=== PATIENT | female | born 1970 | race Caucasian/White ===

== ENCOUNTER 2017-02-13 18:48 | Emergency (ER) | payer BC ==
[~2017-02-13] VITALS: Ht 162.6 cm; Wt 83.1 kg
[~2017-02-13 18:48] MED LIST: GABA1CAP PO; GLC500 PO; HYDR-5688 PO; LEVO88TA3 PO; VENL75CA PO
[2017-02-13 19:33] VITALS: TEMP 36.8; Ht 162.6 cm; Wt 83.1 kg
[2017-02-13] MEDS ORDERED: ONDANSETRON INJ 2 MG/ML 2 ML VIAL IV STA (21:40)
[2017-02-13] MEDS ORDERED: SODIUM CHLORIDE 0.9% 1000ML 1,000 ML IV ONE (21:45)
[2017-02-13] MEDS ORDERED: ONDA4TAB46 PO (21:55)
[2017-02-13 22:07] LABS: URINE APPEARANCE TURBID (CLEAR); URINE BILIRUBIN NEG (NEG); URINE COLOR YELLOW; URINE EPITHELIAL CELL AUTO 0-5 /lpf (0-5); URINE NITRITE POS (NEG); URINE SPECIFIC GRAVITY 1.015 (1.000-1.030); UROBILINOGEN NEG (NEG); ZZUR CULT IF INDIC CLEAN CATCH YES
[2017-02-13 22:09] LABS: MANUAL MICROSCOPIC REQUIRED? NO; REVIEW REQ? NO
[2017-02-13 22:19] LABS: BASO % 0.2 %; BASO ABS # 0.01 K/uL (0-0.2); COMPLETE YES; HEMATOCRIT 39.7 % (37-47); LYMPH % 32.8 %; LYMPH ABS # 2.15 K/uL (1.2-3.4); MEAN CELL VOLUME 81.9 fL (80-100); MEAN CORPUSCULAR HEMOGLOBIN 26.6 pg (25-34); MEAN CORPUSCULAR HGB CONC 32.5 g/dl (32-36); MEAN PLATELET VOLUME 10.6 fL (7.4-10.4); MONO % 8.2 %; NEUT % 58.8 %; PLATELET COUNT 200 K/uL (130-400); RED BLOOD COUNT 4.85 M/uL (4.2-5.4); WHITE BLOOD COUNT 6.55 K/uL (4.8-10.8)
[2017-02-13 22:45] LABS: BUN/CREATININE RATIO 10.6 (10-20); CALCIUM 9.3 mg/dl (8.5-10.1); CREATININE 1.1 mg/dl (0.60-1.20); POTASSIUM 3.9 mmol/L (3.5-5.1)
--- NOTE | 2017-02-13 22:50 | DIAGNOSTIC IMAGING REPORT ---
PA CHEST RADIOGRAPH AND UPRIGHT AND SUPINE AP RADIOGRAPHS OF THE ABDOMEN CLINICAL HISTORY: Epigastric abdominal pain. COMPARISON STUDY: Chest radiograph August 17, [address] of the abdomen and pelvis November 21, 2011 FINDINGS: Lung volumes are normal. There is no consolidation or evidence of pulmonary edema. No pneumothorax or pleural effusion is present. There is no free air. There are cholecystectomy clips. Bowel gas pattern is normal. Surgical staple lines from gastric bypass are noted. Pelvic calcifications likely reflect phleboliths. IMPRESSION: 1. No free air or evidence of bowel obstruction. 2. No acute cardiopulmonary findings. 3. Moderate amount of stool within the colon and rectum. Electronically signed by: Ran Flores M.D. 02/13/2017 10:48 PM Dictated Date/Time: 02/13/2017 10:47 PM
[2017-02-13] MEDS ORDERED: CEFTRIAXONE SOD INJ 1 GM ADDVIAL IV STA (23:09)
[2017-02-13] MEDS ORDERED: CEFD300C2 PO (23:10)
[2017-02-14 00:17] VITALS: BP 116/67; PULSE 57; O2SAT 95
--- NOTE | 2017-02-14 04:26 | EMERGENCY ROOM VISIT NOTE ---
History First contact with patient: 21:29 Chief Complaint: ABDOMINAL PAIN Stated Complaint: ABDOMINAL PAIN, VOMITING, ELEVATED LABS-REFERRED Nursing Triage Summary: Pt reports she has been having LUQ to upper mid abominal pain after eating and drinking for 2 weeks. Went to PCP and had blood work drawn. elevated lipase. To Walk-in clinic today with nausea and vomiting (3 episodes) today and told to come to ER. History of Present Illness The patient is a 46 year old female who presents to the Emergency Room with complaints of left upper abdominal pain off and on for the past 2 weeks. She has not to her primary care physician during this interval, and had a very slightly elevated lipase. Her other labs were reportedly normal. The patient states that she had some nausea and a few episodes of vomiting today, and she went to the walk-in clinic. The clinic referred the patient to the ER for further management. The patient does not report fever or chills. Her symptoms sometimes worsened with eating and drinking. She has not had right-sided abdominal discomfort. She has had some UTI symptoms, and was recently treated with a course of Bactrim. She rates her overall discomfort 7/10. Review of Systems More than 10 systems were reviewed and otherwise negative with the exception of history of present illness. Past Medical/Surgical History Medical Problems: (1) Breast hypertrophy Social History Smoking Status: Never Smoker Housing Status: lives with family Current/Historical Medications Scheduled Cefdinir (Omnicef), 300 MG PO Q12H Levothyroxine Sodium (Levothyroxine Sodium), 1 TAB PO QAM Metformin Hcl (Glucophage *), 500 MG PO HS Venlafaxine Hcl (Effexor Xr), 1 CAP PO QAM Scheduled PRN Gabapentin (Neurontin), 300 MG PO HS PRN for LEG PAIN Hydrocodone/Acetaminophen 5MG/325MG ([place] 5MG/325MG), 1 TAB PO BID PRN for Pain Ondansetron Hcl (Zofran), 4 MG PO Q8 PRN for Nausea Allergies Coded Allergies: Milk (Verified Allergy, Mild, LACTOSE INTOLERANCE, 02/13/17) Tramadol (Verified Allergy, Mild, CHEST PAIN, 02/13/17) Morphine (Verified Allergy, Unknown, CANT REMEMBER, 02/13/17) Codeine (Verified Adverse Reaction, Mild, N/V, 02/13/17) Amoxicillin (Verified Adverse Reaction, Unknown, C. DIFF INFECTION, 02/13/17 ) Physical Exam Vital Signs Date Time Temp Pulse Resp B/P Pulse Ox O2 Delivery O2 Flow Rate FiO2 02/14/17 00:17 57 16 116/67 95 02/13/17 23:45 57 16 129/80 97 Room Air 02/13/17 21:29 50 02/13/17 21:11 50 14 121/80 95 Room Air 02/13/17 19:33 36.8 61 22 126/88 96 Room Air Pain Rating (0-10): 0 Physical Exam VITALS: Vitals are noted on the nurse's note and reviewed by myself. Vital signs stable. GENERAL: Well-developed, well-nourished, white female, who is in no acute distress and resting comfortably. Patient is cooperative with the examination. HEAD: Normocephalic atraumatic. NECK: Supple without nuchal rigidity. No lymphadenopathy. No thyromegaly. Cervical spine is nontender. HEART: Regular rate and rhythm without murmurs gallops or rubs. LUNGS: Clear to auscultation bilaterally without wheezes, rales or rhonchi. No retractions or accessory muscle use. ABDOMEN: Positive normal bowel sounds x 4. Soft with [id number] tenderness. There is no significant upper abdominal tenderness. MUSCULOSKELETAL: No muscle atrophy, erythema, or edema noted. Full range of motion without joint tenderness in all extremities. Medical Decision & Procedures ER Provider Diagnostic Interpretation: PA CHEST RADIOGRAPH AND UPRIGHT AND SUPINE AP RADIOGRAPHS OF THE ABDOMEN CLINICAL HISTORY: Epigastric abdominal pain. COMPARISON STUDY: Chest radiograph August 17, [address] of the abdomen and pelvis November 21, 2011 FINDINGS: Lung volumes are normal. There is no consolidation or evidence of pulmonary edema. No pneumothorax or pleural effusion is present. There is no free air. There are cholecystectomy clips. Bowel gas pattern is normal. Surgical staple lines from gastric bypass are noted. Pelvic calcifications likely reflect phleboliths. IMPRESSION: 1. No free air or evidence of bowel obstruction. 2. No acute cardiopulmonary findings. 3. Moderate amount of stool within the colon and rectum. Laboratory Results 02/13/17 21:59 Red Blood Count 4.85, Mean Corpuscular Volume 81.9, Mean Corpuscular Hemoglobin 26.6, Mean Corpuscular Hemoglobin Concent 32.5, Mean Platelet Volume 10.6, Neutrophils (%) (Auto) 58.8, Lymphocytes (%) (Auto) 32.8, Monocytes (%) (Auto) 8.2, Eosinophils (%) (Auto) 0.0, Basophils (%) (Auto) 0.2, Neutrophils # (Auto) 3.85, Lymphocytes # (Auto) 2.15, Monocytes # (Auto) 0.54, Eosinophils # (Auto) 0.00, Basophils # (Auto) 0.01 02/13/17 21:59 Test 02/13/17 21:30 02/13/17 21:59 02/13/17 22:05 Urine Color YELLOW Urine Appearance TURBID (CLEAR) Urine pH 6.0 (4.5-7.5) Urine Specific [place] 1.015 (1.000-1.030) Urine Protein NEG (NEG) Urine Glucose (UA) NEG (NEG) Urine Ketones NEG (NEG) Urine Occult Blood 1+ (NEG) Urine Nitrite POS (NEG) Urine Bilirubin NEG (NEG) Urine Urobilinogen NEG (NEG) Urine Leukocyte Esterase LARGE (NEG) Urine WBC (Auto) >30 /hpf (0-5) Urine RBC (Auto) 5-10 /hpf (0-4) Urine Hyaline Casts (Auto) 1-5 /lpf (0-5) Urine Epithelial Cells (Auto) 0-5 /lpf (0-5) Urine Bacteria (Auto) 4+ (NEG) Urine Test NEG (NEG) White Blood Count 6.55 K/uL (4.8-10.8) Red Blood Count 4.85 M/uL (4.2-5.4) Hemoglobin 12.9 g/dL (12.0-16.0) Hematocrit 39.7 % (37-47) Mean Corpuscular Volume 81.9 fL (80-100) Mean Corpuscular Hemoglobin 26.6 pg (25-34) Mean Corpuscular Hemoglobin Concent 32.5 g/dl (32-36) Platelet Count 200 K/uL (130-400) Mean Platelet Volume 10.6 fL (7.4-10.4) Neutrophils (%) (Auto) 58.8 % Lymphocytes (%) (Auto) 32.8 % Monocytes (%) (Auto) 8.2 % Eosinophils (%) (Auto) 0.0 % Basophils (%) (Auto) 0.2 % Neutrophils # (Auto) 3.85 K/uL (1.4-6.5) Lymphocytes # (Auto) 2.15 K/uL (1.2-3.4) Monocytes # (Auto) 0.54 K/uL (0.11-0.59) Eosinophils # (Auto) 0.00 K/uL (0-0.5) Basophils # (Auto) 0.01 K/uL (0-0.2) RDW Standard Deviation 40.8 fL (36.4-46.3) RDW Coefficient of Variation 13.7 % (11.5-14.5) Immature Granulocyte % (Auto) 0.0 % Immature Granulocyte # (Auto) 0.00 K/uL (0.00-0.02) Anion Gap 9.0 mmol/L (3-11) Est Creatinine Clear Calc Drug Dose 66.0 ml/min Estimated GFR () 69.2 Estimated GFR (Non- 59.7 BUN/Creatinine Ratio 10.6 (10-20) Calcium Level 9.3 mg/dl (8.5-10.1) Total Bilirubin 0.4 mg/dl (0.2-1) Aspartate Amino Transf (AST/SGOT) 18 U/L (15-37) Alanine Aminotransferase (ALT/SGPT) 17 U/L (12-78) Alkaline Phosphatase 133 U/L (45-117) Total Protein 8.0 gm/dl (6.4-8.2) Albumin 3.9 gm/dl (3.4-5.0) Globulin 4.1 gm/dl (2.5-4.0) Albumin/Globulin Ratio 1.0 (0.9-2) Amylase Level 43 U/L (25-115) Lipase 268 U/L (73-393) Bedside Troponin I 0.000 ng/ml (0-0.045) Medications Administered Medications (Trade) Dose Ordered Sig/Betsy Route Start Time Stop Time Status Last Admin Dose Admin Sodium Chloride (Nss 1000ml) 1,000 ml @ 999 mls/hr Q1H1M ONCE IV 02/13/17 21:45 02/13/17 22:45 DC 02/13/17 22:00 999 MLS/HR Ondansetron HCl (Zofran Inj) 4 mg NOW STAT IV 02/13/17 21:40 02/13/17 21:43 DC 02/13/17 21:59 4 MG Ceftriaxone Sodium (Rocephin Inj) 1 gm NOW STAT IV 02/13/17 23:09 02/13/17 23:10 DC 02/13/17 23:43 1 GM ED Course Physical exam and history were performed. Nursing notes and EMR were reviewed. Patient appears to have reports of left-sided abdominal pain with nausea and vomiting off and on for the past few weeks. On examination the patient does not appear toxic. IV access was established and labs were obtained. X-rays were performed. The patient was hydrated and medicated as above. EKG was normal sinus rhythm without acute ST elevation. She was placed on a cardiac surgeon. The patient's blood work is as above and was reviewed. She does not have a significantly elevated white blood cell count, gross anemia, bandemia, or significant electrolyte imbalance. Her amylase and lipase did not show evidence of pancreatitis. LFTs are nondiagnostic. Troponin 1 is negative. X- ray does not show acute cardiopulmonary findings, but she does have some increased stool in her colon and rectum. The patient's urine is consistent with infection and she was given IV Rocephin here in the department. Repeat abdominal examination does not show significant upper abdominal tenderness. I discussed the patient's diagnostic findings with her at length. She at a minimum has a UTI and constipation. This may be contributing to some of her symptoms. The patient could also have foodborne illness or viral process causing some of her symptoms. She has Zofran at home, was asked to continue this medication. She was recently on Bactrim for her UTI will trial Omnicef pending urine culture. I did recommend the patient follow up with her PCP this week for further care and management. If her symptoms evolve or worsen she was certainly invited back to the ER anytime. The chart was completed utilizing app2you Speech Voice Recognition Software. Grammatical errors, random word insertions, pronoun errors, and incomplete sentences are an occasional consequence of this system due to software limitations, ambient noise, and hardware issues. Any formal questions or concerns about the content, text, or information contained within the body of this dictation should be directly addressed to the provider for clarification. . Medical Decision Differential diagnosis: Etiologies such as appendicitis, diverticulitis, PUD, biliary pathology, UTI, pancreatitis, obstruction, mesenteric ischemia, aortic pathology, infections, inflammatory bowel disease, renal colic, as well as others were entertained. Impression Primary Impression: Urinary tract infection Additional Impression: Constipation Departure Information Dispostion Home / Self-Care Condition GOOD Prescriptions Cefdinir (OMNICEF) 300 Mg Cap 300 MG PO Q12H for 7 Days, #14 CAP Prov: Steven Boyd PA-C 02/13/17 Forms Call Back Authorization, HOME CARE DOCUMENTATION FORM, IMPORTANT VISIT INFORMATION Patient Instructions My [facility] Additional Instructions You were seen and evaluated today on an emergency basis only. This is not a substitute for, or an effort to provide, complete comprehensive medical care. It is not possible to recognize and treat all injuries or illnesses in a single emergency department visit. For this reason it is recommended that you followup with your primary care physician this week for ongoing care and evaluation. Take Omnicef 300 mg twice daily for the next 7 days Consider using OTC MiraLAX at home for the next few days to help produce a bowel movement You are welcome to return to the emergency department anytime with new, worsening, or concerning symptoms. Problem Qualifiers
--- NOTE | 2017-02-15 14:46 | Pharmacy Progress Note ---
ED Pharmacist Culture FollowUp Date of Service: Feb 15, 2017. Patient was sent home with a prescription for cefdinir, which should cover the E. coli growing from the patient's urine culture, (based on susceptibility to ceftriaxone)
== END 2017-02-14 00:15 | disposition home or self-care (01) ==
LOC: C.EDB 18:50
DX: N39.0 Urinary tract infection, site not specified (principal); K59.00 Constipation, unspecified; Z79.899 Other long term (current) drug therapy

== ENCOUNTER → 2017-03-16 | Outpatient (CLI) | payer BC ==
[~2017-03-16] MED LIST changes: +ONDA4TAB46 PO
--- NOTE | 2017-03-16 11:39 | DIAGNOSTIC IMAGING REPORT ---
ULTRASOUND ABDOMEN COMPLETE CLINICAL HISTORY: Pancreatitis. COMPARISON STUDY: Abdominal CT dated 11/21/2011. TECHNIQUE: Real-time, grayscale, and color flow sonography of the abdomen was performed. Images are reviewed in the transverse and longitudinal planes. FINDINGS: Liver: The liver is normal in size and demonstrates heterogeneously increased echotexture suggesting hepatic steatosis. There is no intrahepatic biliary ductal dilatation. The main portal vein is patent. Gallbladder: The gallbladder is surgically absent. The common bile duct measures up to 0.4 cm in diameter. Pancreas: Not well visualized due to overlying bowel gas. Spleen: The spleen is top normal in size and homogeneous in echotexture, measuring 13.4 cm in length. Kidneys: The kidneys are normal in size and echotexture. There is no hydronephrosis. The right kidney measures 10.8 cm in length and the left kidney measures 10.3 cm in length. No shadowing calculi are identified. Abdominal vasculature: Visualized portions of the abdominal aorta and IVC are normal as visualized. Ascites: None. IMPRESSION: 1. No acute sonographic abnormality is identified noting status post cholecystectomy. 2. Findings suggest mild hepatic steatosis. 3. The pancreas was not well visualized due to overlying bowel gas. Electronically signed by: Alphonso Jeffries M.D. 03/16/2017 11:37 AM Dictated Date/Time: 03/16/2017 11:35 AM
== END | disposition home or self-care (01) ==
LOC: C.ULTRBC 10:06
PROVIDERS: ATTEND Family Medicine
DX: K85.90 Acute pancreatitis without necrosis or infection, unspecified (principal)

== ENCOUNTER → 2018-01-05 | Outpatient (CLI) | payer OTHER ==
[~2018-01-05] MED LIST changes: +GABA100C13 PO; -GABA1CAP PO
--- NOTE | 2018-01-05 12:09 | DIAGNOSTIC IMAGING REPORT ---
Brain MRI WITHOUT CONTRAST HISTORY: DEMYELINATING DISEASE OF CENTRAL NERVOUS SYSTEM TECHNIQUE: Multiplanar multisequence MRI of the brain was performed without the use of contrast. COMPARISON STUDY: Brain MRI 03/16/2012. FINDINGS: There are no areas of restricted diffusion to suggest acute infarction. The midline structures are intact. The paranasal sinuses are clear. The mastoid air cells are clear. The ventricles and sulci are within normal limits for age. There is no mass, hematoma, midline shift. The major vascular flow-voids at the skull base are well maintained. The orbits are unremarkable. The optic nerves are symmetric and demonstrate a normal signal intensity. There few punctate foci of T2 hyperintensity seen within the periventricular and subcortical white matter of the frontal lobes. These are not significantly changed. No abnormal white matter foci within the posterior fossa. IMPRESSION: No acute intracranial abnormality. No change in the few scattered punctate foci of T2 hyperintensity within the white matter of the frontal lobes. This is nonspecific and can be seen the setting of migraines, microvascular ischemic change, or less likely a demyelinating process. Electronically signed by: Markell Harris M.D. 01/05/2018 12:08 PM Dictated Date/Time: 01/05/2018 11:24 AM
== END | disposition home or self-care (01) ==
LOC: C.MRI 10:47
PROVIDERS: ATTEND Family Medicine
DX: G37.9 Demyelinating disease of central nervous system, unspecified (principal)

== ENCOUNTER → 2018-03-01 | Outpatient (CLI) | payer OTHER ==
[2018-03-01 10:06] LABS: HEMOGLOBIN A1C 5.8 % (4.5-5.6)
== END | disposition home or self-care (01) ==
LOC: C.LAB1850 08:48
PROVIDERS: ATTEND Physician Assistant
DX: E11.9 Type 2 diabetes mellitus without complications (principal)

== ENCOUNTER 2019-07-27 14:07 | Inpatient (IN) ==
--- OUTSIDE RECORDS SUMMARY | 2019-07-27 14:10 | External Medical Summary | Continuity of Care Document ---
:1970 Author Name Alec Luo, Provider Address Unavailable Unavailable , Care Team Providers Name Role Phone Unavailable Unavailable Unavailable Joycelyn Cueva PA-C Unavailable [email or web address] RENEE DE LEÓN Unavailable Unavailable Unavailable Unavailable Unavailable Problems Benign Headache Syndromes (784.0) Demyelinating disorder (341.9) (G37.9) Optic neuritis (377.30) (H46.9) Hypothyroidism (244.9) (E03.9) Depression with anxiety (300.4) (F41.8) Status post gastric bypass for obesity (V45.86) (Z98.84) Diabetes mellitus (250.00) (E11.9) Abdominal pannus (278.1) (E65) Allergies and Adverse Reactions Amoxicillin TABS (Allergy) Codeine Derivatives (Allergy) Reaction: Nausea, Vomiting Morphine Derivatives (Allergy) Reaction: Rash Tramadol (Allergy) Reaction: Chest pain Medications Synthroid 88 MCG Oral Tablet; TAKE 1 TABLET DAILY DIRECTE D. , M.D. Refills: 0 Effexor 75 MG TABS; TAKE 1 TABLET DAILY. , M.D. Refills: 0 Thrive For Life Womens TABS , M.D. Refills: 0 Endocet 5-325 MG Oral Tablet; TAKE 1 TAB LET EVERY 4 TO 6 HOURS NEEDED FOR PAIN. HUANG Cueva Start: 22-Mar-2018 Quantity: 18 Refills: 0 Procedures History of Gastric Surgery For Morbid Obesity Gastric Bypass Status: Completed History of Cholecystectomy Laparoscopic Status: Completed History of Hysterectomy Status: Complete d History of Neuroplasty Decompression Median Nerve At Carpal Status: Completed Tunnel Immunizations Influenza Comments:Approx Jul 2012 Fluzone Quadrivalent 0.5 ML Intramuscular Suspension On: Aug-2018 Lot #: [id number], [employer] Family History Mother Family history of Cancer Status: Active Family history of Reported Family History Of Heart Disease S tatus: Active Father Family history of Diabetes Mellitus (V18.0) Status: Active Family history of Hypertension (V17.49) Status: Active Family history of Hyperlipidemia Status: Active Social History - Smoking Status Never smoker Plan of Treatment Planned Observations Planned Goals not documented Results No Known Results Results not documented Encounters Appointment; Joycelyn Cueva PA-C 17-May-2018 16:00 Encounter Diagnosis: Problem not documented Appointment; Joycelyn Cueva PA-C 18-Apr-2018 16:00 Encounter Diagnosis: Problem not documented Appointment; Joycelyn Cueva PA-C 10-Apr-2018 13:00 Encounter Diagnosis: Problem not documented Appointment; Joycelyn Cueva PA-C 05-Apr-2018 14:00 Encounter Diagnosis: Problem not documented Appointment; Berta Flores M.D. 02-Apr-2018 7:00 Encounter Diagnosis: Problem not documented Appointment; Joycelyn Cueva PA-C 22-Mar-2018 11:00 Encounter Diagnosis: Problem not documented Appointment; Berta Flores M.D. 20-Feb-2018 15:30 Encounter Diagnosis: Problem not documented
[2019-07-27] MEDS ORDERED: SODIUM CHLORIDE 0.9% 1000ML 1,000 ML IV ONE (14:24)
[2019-07-27] MEDS ORDERED: ERTAPENEM SODIUM 10 ML IV STA (14:34)
[2019-07-27 14:52] LABS: Hematocrit (blood only) 41.9 % (37-47); Hemoglobin 13.7 g/dL (12.0-16.0); Mean Corpuscular Hgb Conc 32.7 g/dL (32-36); Mean Corpuscular Volume 91.5 fL (80-100); Mean Platelet Volume 10.4 fL (7.4-10.4); Platelet Count 164 K/uL (130-400); RDW Standard Deviation 43.3 fL (36.4-46.3); Red Blood Count 4.58 M/uL (4.2-5.4); White Blood Count 6.23 K/uL (4.8-10.8)
[2019-07-27 14:59] LABS: Appearance Urine Cloudy (Clear); Bacteria Urine Automated 4+ (Negative); Bilirubin Urine Negative (Negative); Blood Urine Trace (Negative); Color Urine Yellow; Epithelial Cell Urine Auto 0-5 /lpf (0-5); Glucose Urine UA Negative (Negative); Ketones Urine Negative (Negative); Leukocyte Esterase Urine 3+ (Negative); Nitrite Urine Positive (Negative); Protein Urine Negative (Negative); RBC Urine Automated 0-4 /hpf (0-4); Specific Gravity Urine 1.017 (1.000-1.030); Urobilinogen Urine Negative (Negative); WBC Urine Automated >30 /hpf (0-5); pH Urine 5.5 (4.5-7.5)
[2019-07-27 15:08] LABS: Calcium 8.9 mg/dl (8.5-10.1); Creatinine Clr Calc Pharmacy 61.2 ml/min; Est GFR (African American) 64.2; Est GFR (Non-African American) 55.4; Potassium 3.9 mmol/L (3.5-5.1)
--- NOTE | 2019-07-27 15:38 | History & Physical Report ---
Date of Service July 27, 2019 Assessment & Plan (1) Urinary tract infection: Recurrent and resistant Has been working with [facility] specialist for this issue UA + in the ED, cx pending Recent cx noted for ESBL Klebsiella Started on invanz in the ED, will continue WBC WNL, afebrile Probiotics IVF Renal US pending, possible early pyelo (2) Hypothyroid: continue home meds (3) Clostridium difficile infection: Hx of infection with amoxicillin use Advised to continue probiotics during course of abx and for at least a month after (4) Pre-diabetes: Hx of DM that resolved s/p gastric bypass Is supposed to take metformin HS only, but manages with her diet A1c 5.4 last month BS 95 in ED, monitor (5) Depression: continue home meds (6) DVT prophylaxis: SCDs, ambulation History of Present Illness Primary Care Provider: Amanda Franco, DO 49 y/o F who was sent here for abn UA + cx. Pt has been having issues with recurrent UTI since March. She has had 6-7 episodes. She will finish a course of abx and feel improved, but then a week later her sx will return. Pt states she never has any urinary pain or frequency. She initially notes cloudy urine that is malodorous. She will then develop flank pain, generally on the R. Given the repeat episodes, pt was recently referred to uro-gyne at [facility]. She has met with them once and was put on prophylactic macrobid, which she started 07/19. A few days later she noted cloudy urine. She was seen by her PCP on Monday and a UA was collected via [facility]. She was called today to come to the ED for ESBL UTI with klebsiella. She does note mild R sided back pain today and possibly a fever. Pt denies SOB, chest pain, abd pain, n/v/c/d, LE pain or swelling. Allergies Allergy/AdvReac Type Severity Reaction Status Date / Time milk Allergy Mild LACTOSE Verified 07/27/19 14:46 INTOLERANCE tramadol Allergy Mild CHEST PAIN Verified 07/27/19 14:46 morphine Allergy Unknown N/V; GI Verified 07/27/19 14:46 Upset codeine AdvReac Mild N/V Verified 07/27/19 14:46 amoxicillin AdvReac Unknown C. DIFF Verified 07/27/19 14:46 INFECTION Home Medications Home Medications Medication Instructions Recorded Confirmed Type levothyroxine 88 mcg PO DAILY #0 tab 08/31/16 07/27/19 History ondansetron HCl 4 mg PO DAILY PRN #0 tab 02/13/17 07/27/19 History hydroxyzine pamoate [Vistaril] 25 mg PO HS PRN 07/27/19 07/27/19 History nitrofurantoin macrocrystal 100 mg PO HS 07/27/19 07/27/19 History venlafaxine 75 mg PO QAM 07/27/19 07/27/19 History Past Med/Surg History Medical History Kidney infection UTI (urinary tract infection) Family History Mother Myocardial infarction Bladder cancer Father Stroke Other No significant family history Social History Current Living Situation: Family Feels Safe at Home: Yes Smoking Status: Never smoker Hx Alcohol Use: No Hx Substance Use: No Review of Systems Review of Systems: Pertinent positives and negatives reviewed in HPI--all others negative Physical Exam Constitutional: WD/WN, vitals as above Eyes: normal visual panchal by confrontation and + anicteric sclerae Neck: normal visual inspection and trachea midline Respiratory: normal respiratory effort, lungs clear to auscultation Cardiovascular: Rate/Rhythm: regular rate and regular rhythm Gastrointestinal (Abdomen): Inspection/Auscultation: abdomen not distended Percussion/Palpation: abdomen soft; abdomen nontender Musculoskeletal: Head/Neck/Chest: normocephalic and head atraumatic negative for edema, peripheral pulses intact Mild R sided CVA TTP Skin: no rashes, warm and dry Neurologic: awake; not confused Speech / Cognition: normal speech Psychiatric: A+Ox3, euthymic affect Results & Data Vital Signs (Past 12 Hours) Vital Signs Temp Pulse Pulse Resp BP BP Pulse Ox 07/27/19 15:03 50 L 20 119/84 96 07/27/19 14:10 36.7 C 57 L 20 121/81 97 Diagnostic Findings Renal US: neg for acute Code Status & VTE Plan Code Status Full code PG Care Time/CCT Total # of Minutes Spent Total Time Spent with Patient: Total time spent is greater than 50% in coordination of care (as documented) at patient's floor/unit and/or counseling patient:
[2019-07-27] MEDS ORDERED: ERTAPENEM SODIUM 1,000 MG in SODIUM CHLORIDE 0.9% 50 ML IV ONE (16:00)
--- NOTE | 2019-07-27 16:02 | Ultrasound Report ---
US renal/blad retro comp CLINICAL HISTORY: 49 years-old Female presenting with flank pain, poss pyelo or hydroneph. TECHNIQUE: Real-time grayscale and limited color Doppler ultrasound imaging of the kidneys and bladde r was performed. COMPARISON: 03/16/2017. FINDINGS: Right kidney: Normal echogenicity with preserved corticomedullary differentiation. Normal cortical th ickness. Right kidney measures 10.4 cm. No hydronephrosis. No convincing evidence of calculus or mass . Left kidney: Normal echogenicity with preserved corticomedullary differentiation. Normal cortical thi ckness. Left kidney measures 10.6 cm. No hydronephrosis. No convincing evidence of calculus or mass. Bladder: Underdistended limiting evaluation but grossly normal. Bilateral ureteral jets not visualize d. Other: None. IMPRESSION: 1. Essentially normal renal ultrasound. No obstruction. Electronically signed by: Jefferson Luis M.D. 07/27/2019 4:01 PM
--- NOTE | 2019-07-27 16:04 | Emergency Department Note ---
Entered by Jennifer Corrales acting as a scribe for Alphonso Dacosta MD History of Present Illness General Chief complaint: Abnormal Labs/Diagnostic Testing Stated complaint: IV ANTIBIOTICS REFERRED Time Seen by Provider: 07/27/19 14:20 Source: patient Mode of arrival: ambulatory History of Present Illness Provider complaint: abnormal lab results Onset (ago): day(s) 3 Location: pelvis Pain Consistency: + other (episode ) Maximum Pain Intensity: 2 Relieved By: not by medication (antibiotics ) Associated symptoms: + other (slight back pain ) The patient is a 49 year old female with a PMHX of UTI's and kidney infections, who presents to the ED with complaints of an episode of abnormal urinary lab results from a sample given 3 days ago. She states that she was prompted by her PCP at [facility] to come to the ED today for IV antibiotics. The patient states that she has slight back pain. The patient states that she has had recurrent UTIs and kidney infections for the past couple months and was placed on antibiotics several times. She states that she was sent to [facility] by her PCP, they placed her on the antibiotic, Macrobid, prophylactically. She states that she started the Macrobid 1 week ago. The patient states that she went to her PCP 3 days ago and gave another urine sample to be tested. She states that her urine was cloudy but it did not have an odor. The patient states that her UTIs are typically associated with kidney pain. The patient states that she received a call from her PCP about her urine sample that revealed the patients infection was resistant to oral antibiotics. She states that the office told her that they talked with Dr. Kuo from infectious disease who advised the patient to come to the ED for IV antibiotics. The patient states that her previous infections showed E.coli and her PCP would normally give her Bactrim to treat the infections. She denies being nauseous. The patient's chart stated that the patient was sent here for an IV antibiotics. The chart states that the patients urine culture from 07/24 grew Klebsiella pneumonia (ESBL). The infection is Macrobid resistant, which she is taking currently. PCP spoke with infectious disease and they referred her to the ED. Home Medications Home Medications Medication Instructions Recorded Confirmed Type levothyroxine 88 mcg PO DAILY #0 tab 08/31/16 07/27/19 History ondansetron HCl 4 mg PO DAILY PRN #0 tab 02/13/17 07/27/19 History hydroxyzine pamoate [Vistaril] 25 mg PO HS PRN 07/27/19 07/27/19 History nitrofurantoin macrocrystal 100 mg PO HS 07/27/19 07/27/19 History venlafaxine 75 mg PO QAM 07/27/19 07/27/19 History Allergies Allergy/AdvReac Type Severity Reaction Status Date / Time milk Allergy Mild LACTOSE Verified 07/27/19 14:46 INTOLERANCE tramadol Allergy Mild CHEST PAIN Verified 07/27/19 14:46 morphine Allergy Unknown N/V; GI Verified 07/27/19 14:46 Upset codeine AdvReac Mild N/V Verified 07/27/19 14:46 amoxicillin AdvReac Unknown C. 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 and A total of 10 systems reviewed and were otherwise negative Physical Exam Vital Signs Vital Signs - 24 hr 07/27/19 14:10 07/27/19 15:03 07/27/19 15:05 Temperature 36.7 C Temperature Source Oral Sepsis Recent Fever Within 48 Hours No Sepsis New/Unexplained Change in Mental Status No Sepsis Action Taken by Nursing No Action Required Pulse Rate 57 L Pulse Rate [Finger] 50 L Pulse Rate from SpO2 Sensor Respiratory Rate 20 20 Blood Pressure 121/81 119/84 Blood Pressure [Left Arm] 119/84 Blood Pressure Mean 94 95 Blood Pressure Mean [Left Arm] 95 Pulse Oximetry 97 96 Oxygen Delivery Method Room Air Room Air Room Air 07/27/19 15:39 07/27/19 15:40 Temperature Temperature Source Sepsis Recent Fever Within 48 Hours Sepsis New/Unexplained Change in Mental Status Sepsis Action Taken by Nursing Pulse Rate Pulse Rate [Finger] Pulse Rate from SpO2 Sensor 56 L 49 L Respiratory Rate Blood Pressure Blood Pressure [Left Arm] Blood Pressure Mean Blood Pressure Mean [Left Arm] Pulse Oximetry 97 97 Oxygen Delivery Method Room Air Room Air GENERAL: Patient is in no acute distress. HEENT: No acute trauma, normocephalic atraumatic, mucous membranes moist, no nasal congestion, no scleral icterus. NECK: No stridor, no adenopathy, no meningismus, trachea is midline. LUNGS: Clear to auscultation bilaterally, no wheeze, no rhonchi, breath sounds equal. HEART: Without murmurs gallops or rubs, regular rate and rhythm. ABDOMEN: Soft, nontender, bowel sounds positive, no hernias, no peritonitis. BACK: No flank discomfort to percussion. EXTREMITIES: No cyanosis or edema, full range of motion of all the joints without pain or difficulty, no signs for acute trauma. NEUROLOGIC: Oriented x 3, no acute motor or sensory deficits, no focal weakness. SKIN: No rash, no jaundice, no diaphoresis. Course 1423: Past medical records reviewed. The patient was evaluated in room A2. A complete history and physical exam was performed. 1448: I reevaluated the patient at this time and she stated that she is resting comfortably. I discussed the test results and treatment plan with the patient. She verbally agreed and understood. 1502: I discussed the patient's case with Draell Shirley. She agreed to evaluate the patient for further management. 1550: I reevaluated the patient at this time. I discussed the treatment plan with the patient. She verbally agreed and understood. Consultations Consultation #1: I discussed the patient's case with Darell Shirley. She agreed to evaluate the patient for further management. Time: 15:02 Administered Medications Potassium Chloride/Sodium Chloride (1/2 Nss + 20meq Kcl 1000ml) 20 meq in 1,000 mls @ 80 mls/hr IV .[id number] CHANDRAKANT Stop: 08/26/19 17:14 Last Admin: 07/27/19 19:43 Dose: 80 mls/hr Documented by: [id number] Lactobacillus Acidophilus (Floranex) 4 tab PO QIDM CHANDRAKANT Stop: 08/26/19 17:07 Last Admin: 07/27/19 21:07 Dose: 4 tab Documented by: [id number] Admin: 07/27/19 19:42 Dose: 4 tab Documented by: [id number] Discontinued Medications Sodium Chloride (Nss 1000ml) 1,000 mls @ 999 mls/hr IV .[id number] ONE Stop: 07/27/19 15:24 Last Infusion: 07/27/19 16:07 Dose: 0 mls/hr Documented by: [id number] Admin: 07/27/19 15:03 Dose: 999 mls/hr Documented by: [id number] Ertapenem 1,000 mg/ Sodium (Chloride) 60 mls @ 100 mls/hr IV NOW ONE Stop: 07/27/19 16:35 Last Infusion: 07/27/19 17:06 Dose: 0 mls/hr Documented by: [id number] Admin: 07/27/19 16:07 Dose: 100 mls/hr Documented by: [id number] Medical Decision Making Differential Diagnosis Differential diagnoses include but are not limited to UTI, pyelonephritis, hydr onephrosis, urinary obstruction, renal failure, failed outpatient management, dehydration. Medical Records Attestation: I reviewed the patient's medical records. Home Medications Current Medication List: was personally reviewed by me Laboratory Data Attestation: I reviewed the patient's lab results. Result diagrams: 07/27/19 14:37 07/27/19 14:37 Lab Results 07/27/19 07/27/19 07/27/19 Range/Units 14:37 14:37 14:45 WBC 6.23 (4.8-10.8) K/uL RBC 4.58 (4.2-5.4) M/uL Hgb 13.7 (12.0-16.0) g/dL Hct 41.9 (37-47) % MCV 91.5 (80-100) fL MCH 29.9 (25-34) pg MCHC 32.7 (32-36) g/dL RDW Std Deviation 43.3 (36.4-46.3) fL RDW Coeff of Serge 13.0 (11.5-14.5) % Plt Count 164 (130-400) K/uL MPV 10.4 (7.4-10.4) fL Sodium 143 (136-145) mmol/L Potassium 3.9 (3.5-5.1) mmol/L Chloride 109 H (98-107) mmol/L Carbon Dioxide 30 (21-32) mmol/L Anion Gap 3.0 (3-11) BUN 13 (7-18) mg/dl Creatinine 1.15 (0.6-1.2) mg/dl Est Cr Clr Drug Dosing 61.2 ml/min Est GFR ( Amer) 64.2 Est GFR (Non-Af Amer) 55.4 BUN/Creatinine Ratio 11.0 (10-20) Glucose 95 (70-99) mg/dl Calcium 8.9 (8.5-10.1) mg/dl Urine Color Yellow Urine Appearance Cloudy A (Clear) Urine pH 5.5 (4.5-7.5) Ur Specific [place] 1.017 (1.000-1.030) Urine Protein Negative (Negative) Urine Glucose (UA) Negative (Negative) Urine Ketones Negative (Negative) Urine Blood Trace H (Negative) Urine Nitrite Positive A (Negative) Urine Bilirubin Negative (Negative) Urine Urobilinogen Negative (Negative) Ur Leukocyte Esterase 3+ H (Negative) Urine WBC (Auto) >30 H (0-5) /hpf Urine RBC (Auto) 0-4 (0-4) /hpf U Hyaline Cast (Auto) 1-5 (0-5) /lpf U Epithel Cells (Auto) 0-5 (0-5) /lpf Urine Bacteria (Auto) 4+ H (Negative) Blood Pressure Blood Pressure Findings: Elevated blood pressure Blood Pressure Disposition: further management by hospitalist MDM Narrative There is no leukocytosis or concerning anemia. No significant electrolyte abnormality or kidney failure. Urinalysis does suggest infection, urine culture is pending. I was able to review the urine culture from a few days ago. This showed a Klebsiella pneumonia that was an ESBL. The organism was quite resis tant, it was resistant to Macrobid. The patient was given a dose of IV ertapenem for which sensitivity was shown. Renal ultrasound did not show hydronephrosis or evidence for urinary obstruction. The patient received IV saline, she was given IV ertapenem. The patient has a resistant urinary infection. She is not toxic in appearance, she is not currently febrile. She does have some mild flank pain though. And she thinks she may have been febrile at home. ID had been contacted by the outpatient provider. ID recommended IV antibiotic's and hospitalization. I spoke to the patient and case management. The on-call hospitalist was consulted. Impression & Plan UTI (urinary tract infection), Flank pain, Failure of outpatient treatment Discharge Plan Visit Data *Final* Discharge Date/Time: 07/27/19 16:27 Chief Complaint: Abnormal Labs/Diagnostic Testing Stated Complaint: IV ANTIBIOTICS REFERRED ED Provider: Alphonso Dacosta Discharge Problem: UTI (urinary tract infection), Flank pain, Failure of outpatient treatment Patient Disposition: Admitted As Inpatient Discharge Instructions Interventions: ED Discharge Assessment Last Done: 07/27/19 16:27 The keyshaibe's documentation has been prepared under my direction and personally reviewed by me in its entirety. I confirm that the note above accurately reflects all work, treatment, procedures, and medical decision making performed by me.
[2019-07-27] MEDS ORDERED: ONDANSETRON INJ 2 MG/ML 2 ML VIAL IV PRN (17:08)
[2019-07-27] MEDS ORDERED: ACETAMINOPHEN 325 MG TAB PO PRN (17:08)
[2019-07-27] MEDS ORDERED: ONDANSETRON 4 MG TAB PO PRN (17:08)
[2019-07-27] MEDS ORDERED: MAGNESIUM HYDROXIDE SUSP 30 ML UDC PO PRN (17:08)
[2019-07-27] MEDS: LACTOBACILLUS ACIDOPHILUS (FLORANEX) TAB PO SCH ×2 (19:42→21:07)
[2019-07-27] MEDS: SODIUM CHLOR 0.45% + 20MEQ KCL 20 MEQ/1,000 ML BAG IV SCH (19:43)
[2019-07-28 05:45] LABS: Basophils # (auto) 0.02 K/uL (0-0.2); Basophils % (auto) 0.3 %; Hematocrit (blood only) 37.4 % (37-47); Hemoglobin 12.5 g/dL (12.0-16.0); Lymphocytes % (auto) 36.2 %; Mean Corpuscular Hgb Conc 33.4 g/dL (32-36); Mean Corpuscular Volume 92.1 fL (80-100); Mean Platelet Volume 10.9 fL (7.4-10.4); Monocytes # (auto) 0.48 K/uL (0.11-0.59); Monocytes % (auto) 7.5 %; Neutrophils # (auto) 3.56 K/uL (1.4-6.5); Platelet Count 145 K/uL (130-400); RDW Coefficient of Variation 12.9 % (11.5-14.5); RDW Standard Deviation 43.5 fL (36.4-46.3); Red Blood Count 4.06 M/uL (4.2-5.4); White Blood Count 6.36 K/uL (4.8-10.8)
[2019-07-28 06:17] LABS: BUN Creatinine Ratio 15.2 (10-20); Calcium 8.3 mg/dl (8.5-10.1); Creatinine Clr Calc Pharmacy 78.6 ml/min; Est GFR (African American) 86.4; Est GFR (Non-African American) 74.6; Potassium 4.2 mmol/L (3.5-5.1)
[2019-07-28] MEDS: LEVOTHYROXINE SODIUM 88 MCG TABLET PO SCH (06:25)
[2019-07-28] MEDS: SODIUM CHLOR 0.45% + 20MEQ KCL 20 MEQ/1,000 ML BAG IV SCH ×2 (06:26→19:46)
[2019-07-28] MEDS: VENLAFAXINE HCL XR 75 MG CAPXR PO SCH (08:32)
[2019-07-28] MEDS: LACTOBACILLUS ACIDOPHILUS (FLORANEX) TAB PO SCH ×4 (08:32→19:47)
[2019-07-28] MEDS ORDERED: ONDANSETRON 4 MG TAB PO PRN (11:35)
--- NOTE | 2019-07-28 11:52 | Hospitalist Progress Note ---
Date of Service July 28, 2019 Assessment & Plan (1) Urinary tract infection: - Patient with six diagnosed UTIs in the past nine months. Treated with various agents- recurrent and resistant to treatment. - Schedule August 16 2019 with [facility] for cystoscopy. - UA+ for blood, nitrate, 3+ leuk esterase, >30 WBCs- culture preliminary results with gram negative bacilli - Culture pending- recent culture noted for ESBL Klebsiella - Invanz initiated in ED- continue- antibiotic selection pending sensitivities - Patient continues to be afebrile, no elevation in WBCs - Renal ultrasound without evidence of obstruction of pyelo. - Continue IVF - Per discussion with Infectious Disease, patient may continue IV abx treatment outpatient if asymptomatic, via [facility], pending insurance authorization (2) Hypothyroid: - Continue home levothyroxine 88mcg - Given fatigue, TSH repeated in AM- 2.52 and WNL (3) Clostridium difficile infection: - Hx of infection following amoxicillin use twenty years ago - Advised to continue probiotics during course of abx and for at least a month after (4) Pre-diabetes: - Hx of DM that resolved s/p gastric bypass - Is supposed to take metformin HS only, but manages with her diet - A1c 5.4 last month - BS 95 in ED - Continue to monitor (5) Depression: - Continue home venlafaxine, hydroxyzine (6) DVT prophylaxis: - SCDs - Ambulation encouraged as tolerated Dispo: patient to discharge home on IV ertapenem- will need insurance aut horization and PICC line prior to discharge Supervising Physician Co-Signing Physician Notes Attending Attestation - Chart reviewed in detail, care plan d/w ARMIDA Lira. I agree w/ the soto components of her documentation. 49yo w/ history of gastric bypass status with recurrent UTIs in the last year. Now with MDR klebsiella on outpatient urine cx from 07/24/19 as obtained from [facility]. Interestingly she is largely asymptomatic from this - cloudy urine only - normal WBC count, eating well, afebrile. Does she need intensive IV abx therapy in light of the above?? (And especially since she seems to be asymptomatic). Defer that final decision to ID. If abx are needed - IV ertapenem x 1 week (pathogen only sensitive to ertapenem, cefepime, gent per sensitivity panel). Urology f/u after d/c (along with [facility]rail [facility]). Meri NERI MD Subjective Patient states she is feeling well overall. She states she was treated with bactrim outpatient for UTI recently, with a prophylactic macrobid initiated until her cystoscopy scheduled with [facility] August 16 to investigate a possible underlying cause for recurrent UTIs. She states this is the sixth UTI in the past nine months which have been treated with various antibiotics. She had been to her PCP on Monday and gave a urine sample and was called yesterday with the results after input from infectious disease Dr. Kuo and was told to come to the hospital for IV antiboitics. The patient states the only sign she is experiencing is that her urine is very cloudy, which has been her initial sign in the past. She does have some back pain, but it is much less severe then in the past when she has had UTIs. She believes she may have the start of a yeast infection due to some increased itchiness, which she frequently gets after antibiotic therapy and has diflucan at home. She does have some nausea and fatigue this morning. She denies any fevers, chills, dysuria, chest pain, shortness of breath, abdominal pain, vomiting, diarrhea. Review of Systems Review of Systems: All systems reviewed & are unremarkable except as noted in HPI & below Physical Exam Constitutional: WD/WN, vitals as above Eyes: PERRL, conjunctivae normal, anicteric sclerae Neck: trachea midline, no thyromegaly Respiratory: normal respiratory effort, lungs clear to auscultation Cardiovascular: Rate/Rhythm: regular rhythm and + bradycardic Heart Sounds: normal S1 and normal S2; no gallop, no murmur and no cardiac rub Gastrointestinal (Abdomen): normal bowel sounds, soft, nontender, no hepatosplenomegaly Musculoskeletal: no cyanosis or clubbing, extremities motor strength 5/5 Skin: no rashes, warm and dry Psychiatric: A+Ox3, euthymic affect Genitourinary: without discharge Results & Data Vital Signs (Past 12 Hours) Vital Signs Temp Pulse Resp BP Pulse Ox 07/28/19 07:20 36.7 C 56 L 17 110/70 97 Laboratory Results 07/28/19 07/28/19 07/27/19 Range/Units 05:16 05:16 17:04 WBC 6.36 (4.8-10.8) K/uL RBC 4.06 L (4.2-5.4) M/uL Hgb 12.5 (12.0-16.0) g/dL Hct 37.4 (37-47) % MCV 92.1 (80-100) fL MCH 30.8 (25-34) pg MCHC 33.4 (32-36) g/dL RDW Std Deviation 43.5 (36.4-46.3) fL RDW Coeff of Serge 12.9 (11.5-14.5) % Plt Count 145 (130-400) K/uL MPV 10.9 H (7.4-10.4) fL Immature Gran % (Auto) 0.0 % Neut % (Auto) 56.0 % Lymph % (Auto) 36.2 % [place] % (Auto) 7.5 % Eos % (Auto) 0.0 % Baso % (Auto) 0.3 % Immature Gran # (Auto) 0.00 (0.00-0.02) K/uL Neut # (Auto) 3.56 (1.4-6.5) K/uL Lymph # (Auto) 2.30 (1.2-3.4) K/uL [place] # (Auto) 0.48 (0.11-0.59) K/uL Eos # (Auto) 0.00 (0-0.5) K/uL Baso # (Auto) 0.02 (0-0.2) K/uL Sodium 143 (136-145) mmol/L Potassium 4.2 (3.5-5.1) mmol/L Chloride 111 H (98-107) mmol/L Carbon Dioxide 28 (21-32) mmol/L Anion Gap 4.0 (3-11) BUN 14 (7-18) mg/dl Creatinine 0.90 (0.6-1.2) mg/dl Est Cr Clr Drug Dosing 78.6 ml/min Est GFR ( Amer) 86.4 Est GFR (Non-Af Amer) 74.6 BUN/Creatinine Ratio 15.2 (10-20) Glucose 87 (70-99) mg/dl POC Glucose 89 (70-99) Calcium 8.3 L (8.5-10.1) mg/dl Urine Color Urine Appearance (Clear) Urine pH (4.5-7.5) Ur Specific [place] (1.000-1.030) Urine Protein (Negative) Urine Glucose (UA) (Negative) Urine Ketones (Negative) Urine Blood (Negative) Urine Nitrite (Negative) Urine Bilirubin (Negative) Urine Urobilinogen (Negative) Ur Leukocyte Esterase (Negative) Urine WBC (Auto) (0-5) /hpf Urine RBC (Auto) (0-4) /hpf U Hyaline Cast (Auto) (0-5) /lpf U Epithel Cells (Auto) (0-5) /lpf Urine Bacteria (Auto) (Negative) 07/27/19 07/27/19 07/27/19 Range/Units 14:45 14:37 14:37 WBC 6.23 (4.8-10.8) K/uL RBC 4.58 (4.2-5.4) M/uL Hgb 13.7 (12.0-16.0) g/dL Hct 41.9 (37-47) % MCV 91.5 (80-100) fL MCH 29.9 (25-34) pg MCHC 32.7 (32-36) g/dL RDW Std Deviation 43.3 (36.4-46.3) fL RDW Coeff of Serge 13.0 (11.5-14.5) % Plt Count 164 (130-400) K/uL MPV 10.4 (7.4-10.4) fL Immature Gran % (Auto) % Neut % (Auto) % Lymph % (Auto) % [place] % (Auto) % Eos % (Auto) % Baso % (Auto) % Immature Gran # (Auto) (0.00-0.02) K/uL Neut # (Auto) (1.4-6.5) K/uL Lymph # (Auto) (1.2-3.4) K/uL [place] # (Auto) (0.11-0.59) K/uL Eos # (Auto) (0-0.5) K/uL Baso # (Auto) (0-0.2) K/uL Sodium 143 (136-145) mmol/L Potassium 3.9 (3.5-5.1) mmol/L Chloride 109 H (98-107) mmol/L Carbon Dioxide 30 (21-32) mmol/L Anion Gap 3.0 (3-11) BUN 13 (7-18) mg/dl Creatinine 1.15 (0.6-1.2) mg/dl Est Cr Clr Drug Dosing 61.2 ml/min Est GFR ( Amer) 64.2 Est GFR (Non-Af Amer) 55.4 BUN/Creatinine Ratio 11.0 (10-20) Glucose 95 (70-99) mg/dl POC Glucose (70-99) Calcium 8.9 (8.5-10.1) mg/dl Urine Color Yellow Urine Appearance Cloudy A (Clear) Urine pH 5.5 (4.5-7.5) Ur Specific [place] 1.017 (1.000-1.030) Urine Protein Negative (Negative) Urine Glucose (UA) Negative (Negative) Urine Ketones Negative (Negative) Urine Blood Trace H (Negative) Urine Nitrite Positive A (Negative) Urine Bilirubin Negative (Negative) Urine Urobilinogen Negative (Negative) Ur Leukocyte Esterase 3+ H (Negative) Urine WBC (Auto) >30 H (0-5) /hpf Urine RBC (Auto) 0-4 (0-4) /hpf U Hyaline Cast (Auto) 1-5 (0-5) /lpf U Epithel Cells (Auto) 0-5 (0-5) /lpf Urine Bacteria (Auto) 4+ H (Negative) Diagnostic Findings US renal/blad retro comp CLINICAL HISTORY: 49 years-old Female presenting with flank pain, poss pyelo or hydroneph. TECHNIQUE: Real-time grayscale and limited color Doppler ultrasound imaging of the kidneys and bladder was performed. COMPARISON: 03/16/2017. FINDINGS: Right kidney: Normal echogenicity with preserved corticomedullary differentiat ion. Normal cortical thickness. Right kidney measures 10.4 cm. No hydronephrosis. No convincing evidence of calculus or mass. Left kidney: Normal echogenicity with preserved corticomedullary different iation. Normal cortical thickness. Left kidney measures 10.6 cm. No hydronephrosis. No convincing evidence of calculus or mass. Bladder: Underdistended limiting evaluation but grossly normal. Bilateral ureteral jets not visualized. Other: None. IMPRESSION: 1. Essentially normal renal ultrasound. No obstruction. Electronically signed by: Jefferson Luis M.D. 07/27/2019 4:01 PM PG Care Time/CCT Total # of Minutes Spent Total Time Spent with Patient: Total time spent is greater than 50% in coordi nation of care (as documented) at patient's floor/unit and/or counseling patient: 35
[2019-07-28] MEDS: ERTAPENEM SODIUM 1,000 MG in SODIUM CHLORIDE 0.9% 50 ML IV SCH (15:52)
[2019-07-28] MEDS ORDERED: FLUCONAZOLE 100 MG TAB PO ONE (18:01)
[2019-07-29] MEDS: LEVOTHYROXINE SODIUM 88 MCG TABLET PO SCH (05:17)
[2019-07-29 05:39] LABS: Hematocrit (blood only) 39.8 % (37-47); Mean Corpuscular Hgb Conc 32.7 g/dL (32-36); Mean Corpuscular Volume 92.1 fL (80-100); Mean Platelet Volume 10.6 fL (7.4-10.4); Platelet Count 162 K/uL (130-400); RDW Coefficient of Variation 12.8 % (11.5-14.5); Red Blood Count 4.32 M/uL (4.2-5.4)
[2019-07-29] MEDS: VENLAFAXINE HCL XR 75 MG CAPXR PO SCH (08:44)
[2019-07-29] MEDS: LACTOBACILLUS ACIDOPHILUS (FLORANEX) TAB PO SCH ×3 (08:44→17:49)
[2019-07-29] MEDS: SODIUM CHLOR 0.45% + 20MEQ KCL 20 MEQ/1,000 ML BAG IV SCH (08:45)
[2019-07-29] MEDS: ERTAPENEM SODIUM 1,000 MG in SODIUM CHLORIDE 0.9% 50 ML IV SCH (16:14)
[2019-07-29] MEDS ORDERED: Nursing to Pharmacy Communication ONE (17:43)
--- NOTE | 2019-07-29 20:20 | Discharge Summary ---
Date of Service July 29, 2019 Admission HPI Per Admitting Provider 49 y/o F who was sent here for abn UA + cx. Pt has been having issues with recurrent UTI since March. She has had 6-7 episodes. She will finish a course of abx and feel improved, but then a week later her sx will return. Pt states she never has any urinary pain or frequency. She initially notes cloudy urine that is malodorous. She will then develop flank pain, generally on the R. Given the repeat episodes, pt was recently [place] [facility] [place] She has met with them once and was put on prophylactic macrobid, which she started 07/19. A few days later she noted cloudy urine. She was seen by her PCP on Monday and a UA was collected via [facility]. She was called today to come to the ED for ESBL UTI with klebsiella. She does note mild R sided back pain today and possibly a fever. Pt denies SOB, chest pain, abd pain, n/v/c/d, LE pain or swelling. Principal Diagnosis MDR Klebsiella UTI Discharge Exam Constitutional WD/WN, vitals as above Eyes + anicteric sclerae ENMT Ears: no hearing impairment Neck trachea midline Respiratory normal respiratory effort, lungs clear to auscultation Cardiovascular RRR, no murmur, no edema Gastrointestinal (Abdomen) Inspection/Auscultation: normal bowel sounds Percussion/Palpation: abdomen soft; abdomen nontender Musculoskeletal Head/Neck/Chest: normocephalic and head atraumatic Skin no rashes, warm and dry Neurologic moves all extremities Psychiatric A+Ox3, euthymic affect Genitourinary no CVA tenderness Discharge Data Allergies Allergy/AdvReac Type Severity Reaction Status Date / Time milk Allergy Mild LACTOSE Verified 07/31/19 15:08 INTOLERANCE tramadol Allergy Mild CHEST PAIN Verified 07/31/19 15:08 morphine Allergy Unknown N/V; GI Verified 07/31/19 15:08 Upset codeine AdvReac Mild N/V Verified 07/31/19 15:08 amoxicillin AdvReac Unknown C. DIFF Verified 07/31/19 15:08 INFECTION Consultations 07/27/19 15:44 ED Decision to Admit Stat 07/27/19 17:08 Consult Case Management - Discharge Planning Routine Ordered Studies 07/27/19 14:24 US renal/blad retro comp Stat Hospital Course (1) Urinary tract infection: - Patient with six diagnosed UTIs in the past nine months. Treated with various agents- recurrent but states this is the first that has been MDR requiring only IV coverage - Schedule August 16 2019 with [place] for cystoscopy. - UA+ for blood, nitrate, 3+ leuk esterase, >30 WBCs - Culture with ESBL Klebsiella - Will continue Ertapenem to complete a 7 day course - will go to [facility] for treatment and then can return to prophylactic Macrobid until she has her cystoscopy -- Did discuss with Infectious Disease ([facility]) - could get established if ongoing issues but could await [facility] eval (2) Hypothyroid: - Continue Levothyroxine 88mcg (3) Clostridium difficile infection: - Hx of infection following amoxicillin use twenty years ago - Advised to continue probiotics during course of abx and for at least a month after (4) Pre-diabetes: - Hx of DM that resolved S/P gastric bypass - Is supposed to take metformin HS only, but manages with her diet - A1c 5.4 last month (5) Depression: - Continue home Venlafaxine and Hydroxyzine Total Time Total Time Spent Total Time Spent (In Minutes): Greater than 30 minutes Discharge Plan Discharge Items Patient Disposition: Home - Self-Care Reason For Visit: RECURRENT UTI W/ABX RESISTANCE Discharge Diagnosis: Recurrent UTI Activity: Resume your previous activity Non-emergency contact: Primary Care Provider Call non-emergency contact if: you have any medication questions, your symptoms worsen and you have a fever Follow-up/Referrals: Amanda Franco, [Primary Care Provider] - 08/02/19 11:10 am (Please, follow up at Dr. Franco's office with her associate, Dr. Guillermo, on MondayAugust 02 at 11:10 am. *If you need to change this appointment, call the office at [phone].) Diet: Carb Consistent or DM2 Addtl Attending Provider Instructions: UTI: - This urine culture shows a multi-drug resistant Klebsiella bacteria in your urine. Unfortunately we cannot treat this will pills. You will need to continue Ertapenem daily for 4 more days to complete a 7 day course. - Hopefully this does not re-occur but please talk with your doctor if you do get more symptoms after you finish your antibiotics. Recommend to continue the Macrobid once you finish the Ertapenem and follow the urology/cable mechanic recommendations until you have your scope. - We did discuss with infectious disease (Dr. Kuo - [facility] Infectious Disease) so it may be reasonable to get established with her as well if ongoing UTIs become an issue but sometimes the Urologist can manage this independently. - Recommend to continue probiotics while on antibiotics given your C. diff history in the past. - You have an appointment at the medical treatment unit/cancer center tomorrow for your next antibiotic dose. Pending Studies at Discharge: No Stand-Alone Forms: My [facility] Medications and DC Order Prescriptions: New ertapenem 1 gram recon soln 1 gm IV DAILY 4 Days Qty: 1 RF: 0 Continued levothyroxine 88 mcg Tablet 88 mcg PO DAILY Qty: 0 RF: 3 ondansetron HCl 4 mg Tablet 4 mg PO DAILY PRN (Reason: Nausea) Qty: 0 RF: 0 venlafaxine 75 mg capsule,extended release 24hr 75 mg PO QAM RF: 0 nitrofurantoin macrocrystal 100 mg capsule 100 mg PO HS RF: 0 hydroxyzine pamoate [Vistaril] 25 mg Capsule 25 mg PO HS PRN (Reason: Anxiety) RF: 0 Discharge Orders: Discharge Order (Routine); Ordered 07/29/19 Ordered By: Tali Dela Cruz Admission Data Admit Date/Time: 07/27/19 15:44 Attending Provider: Carlitos Ocampo Admit Provider: Edyta Gonzalez Primary Care Provider: Amanda Franco Other Providers: Edyta Gonzalez Other Interventions: Discharge Summary Assessment (RN) Last Done: 07/29/19 17:40 DC Date/Time DO NOT enter until pt leaves facility: 07/29/19 18:20 Supervising Physician Co-Signing Physician Notes Attending note: patient seen and examined with Tali Dela Cruz PA-C. I agree with her discharge summary. I personally reviewed the labs and imaging findings. patient feeling well, ready for discharge, set up for [facility]apenem at the [facility] eating well, vitals stable, labs stable - UTI, Klebsiella ESBL sensitive to Ertapenem, complete course outpatient follow up with ED, urology
== END 2019-07-29 18:20 | disposition home or self-care (01) | DRG 690 ==
LOC: ED 14:07 → SUATTDRO 15:44 → 4W 15:44